=== PATIENT | male | born 1995 ===

== ENCOUNTER 2024-06-21 09:52 | Emergency (ER) | payer OTHER, SELFPAY ==
--- NOTE | 2024-06-21 | ECG_ITS ---
Test Reason : chest pain Blood Pressure : */* mmHG Vent. Rate : 109 BPM Atrial Rate : 109 BPM P-R Int : 114 ms QRS Dur : 90 ms QT Int : 364 ms P-R-T Axes : 48 37 81 degrees QTcB Int : [address] & T wave abnormality, consider anterolateral ischemia Abnormal ECG No previous ECGs available Referred By: Generic ED Physician Electronically Signed By: Nba Corey
[2024-06-21 10:08] VITALS: BP 127/80; PULSE 109; RESP 26; TEMP 36.6; O2SAT 98; BMI 31.0
[2024-06-21 11:14] LABS: MANUAL DIFF FLAG NO
[2024-06-21 11:25] LABS: Basophils Percent Auto 0.3 % (0-2); Eosinophils Absolute Auto 0.1 X10*3/uL (0.0-0.4); Eosinophils Percent Auto 0.9 % (0-4); Hematocrit 42.3 % (42.0-52.0); Hemoglobin 14.8 g/dl (14.0-18.0); Imm Gran Abs Auto 0.04 X10*3/uL (0.00-0.03); Imm Gran Pct Auto 0.4 % (0.0-0.4); Lymphocytes Absolute Auto 1.6 X10*3/uL (1.2-4.9); Lymphocytes Percent Auto 14.9 % (20-40); Mean Corpuscular Hemoglobin 28.4 pg (27.0-33.0); Mean Platelet Volume 9.2 fL (9.4-12.4); Monocytes Absolute Auto 0.7 X10*3/uL (0.1-1.2); Monocytes Percent Auto 6.1 % (2-11); Neutrophils Absolute Auto 8.4 x10*3/uL (2.0-8.3); Neutrophils Percent Auto 77.4 % (45-73); Platelet Count 318 X10*3/uL (160-400); Red Blood Count 5.22 X10*6/uL (4.60-5.80); Red Cell Distribution Width 11.5 % (11.0-16.0); White Blood Count 10.9 X10*3/uL (4.8-10.8)
[2024-06-21 11:32] LABS: Anion Gap 16 (12-20); Blood Urea Nitrogen 14 mg/dL (9-16); Calcium 9.8 mg/dL (8.4-10.2); Carbon Dioxide 19 mmol/L (22-29); Chloride 108 mmol/L (96-108); Creatinine Clr Calc Pharmacy 111.3; Estimated Glomerular Filt Rate > 60; Glucose Random 97 mg/dL (60-115); Potassium 3.8 mmol/L (3.3-5.1); Sodium 139 mmol/L (135-145)
[2024-06-21 11:41] LABS: Troponin-I High Sensitivity < 2.7 ng/L (<3.5-35.0)
--- NOTE | 2024-06-21 14:57 | ED_ITS ---
HPI - Chest Pain General Chief Complaint: Chest Pain Stated Complaint: CP, headache, sweats Related Data Allergies Allergy/AdvReac Type Severity Reaction Status Date / Time No Known Allergies Allergy Verified 06/21/24 10:17 [facility] Social History Social History Advance Directives: No Advance Directives Information Provided: No Do you have a plan to hurt others: No Plan Physical Exam 2 Vital Signs: Vital Signs: Last Vital Signs Temp 98.0 F 06/21/24 15:05 Pulse 84 06/21/24 15:05 Resp 18 06/21/24 15:05 BP 136/61 06/21/24 15:05 Pulse Ox 97 06/21/24 15:05 O2 Del Method Room Air 06/21/24 15:05 BMI result Body Mass Index 31.0 Course Course Course Narrative: RME, this is a rapid medical exam performed by Erick Holliday please refer to primary provider for complete H&P- 28-year-old male presents for evaluation of chest pain, shortness of breath. His symptoms started 1 week ago and have been intermittent. He reports that he went to [facility] and was ultimately discharged. He states the symptoms started again at work yesterday and he woke up with chest pain today with associated shortness of breath. He reports that he gets dizzy and nauseous after eating. He had an EKG that was nonischemic troponin negative. I added on LFTs given the postprandial symptoms. Medical Decision Making Lab Data 06/21/24 11:09 06/21/24 11:09 Labs: Lab Results 06/21/24 Range/Units 11:09 WBC 10.9 H (4.8-10.8) X10*3/uL RBC 5.22 (4.60-5.80) X10*6/uL Hgb 14.8 (14.0-18.0) g/dl Hct 42.3 (42.0-52.0) % MCV 81.0 (80.0-98.0) fL MCH 28.4 (27.0-33.0) pg MCHC 35.0 (31.0-36.0) g/dl RDW 11.5 (11.0-16.0) % Plt Count 318 (160-400) X10*3/uL MPV 9.2 L (9.4-12.4) fL Immature Gran % (Auto) 0.4 (0.0-0.4) % Neut % (Auto) 77.4 H (45-73) % Lymph % (Auto) 14.9 L (20-40) % [place] % (Auto) 6.1 (2-11) % Eos % (Auto) 0.9 (0-4) % Baso % (Auto) 0.3 (0-2) % Lymph # (Auto) 1.6 (1.2-4.9) X10*3/uL [place] # (Auto) 0.7 (0.1-1.2) X10*3/uL Eos # (Auto) 0.1 (0.0-0.4) X10*3/uL Baso # (Auto) 0.0 (0.0-0.2) X10*3/uL Abs Immat Gran (auto) 0.04 H (0.00-0.03) X10*3/uL Absolute Neuts (auto) 8.4 H (2.0-8.3) x10*3/uL Absolute Nucleated RBC 0.000 (0.0-0.012) X10*3/uL Nucleated RBC % (auto) 0.0 (0.0-0.2) /100WBC Sodium 139 (135-145) mmol/L Potassium 3.8 (3.3-5.1) mmol/L Chloride 108 (96-108) mmol/L Carbon Dioxide 19 L (22-29) mmol/L Anion Gap 16 (12-20) BUN 14 (9-16) mg/dL Creatinine 1.11 (0.5-1.4) mg/dL Estim Creat Clear Calc 111.3 Estimated GFR > 60 Random Glucose 97 (60-115) mg/dL Calcium 9.8 (8.4-10.2) mg/dL Total Bilirubin 0.5 (0.0-1.0) mg/dL Direct Bilirubin 0.2 (0.0-0.5) mg/dL AST 31 (5-37) U/L ALT 45 H (0-40) U/L Alkaline Phosphatase 70 (39-117) U/L Troponin I High Sens < 2.7 (<3.5-35.0) ng/L Total Protein 7.9 (6.5-8.0) g/dL Albumin 4.5 (3.5-5.0) g/dL Lipase 25 (8-78) U/L TSH 1.53 (0.32-4.0) uIU/mL Discharge Plan Discharge Clinical Impression: Chest pain Patient Disposition: Left W/O Completing Treatment Discharge Date/Time: 06/21/24 16:09
[2024-06-21 15:05] VITALS: BP 136/61; PULSE 84; RESP 18; TEMP 36.7; O2SAT 97
--- NOTE | 2024-06-21 15:06 | PC.NURSE ---
pt came to triage stating he wanted to leave, repeat vitals were performed at this time, provider spoke with the patient as well. pt stated he had eaten breakfast including a glass of milk and shortly there after began having the symptoms- this was not divulged in the initial triage. pt now stating his pain lessoned and he feels somewhat better. upon pt leaving triage security entered triage stating the parents are concerned about the patient and wish for him to be seen and have gone outside to attempt to get him to return to the ED.
[2024-06-21 15:15] LABS: Alanine Aminotransferase 45 U/L (0-40); Albumin Level 4.5 g/dL (3.5-5.0); Aspartate Amino Transferase 31 U/L (5-37); Bilirubin Direct 0.2 mg/dL (0.0-0.5); Bilirubin Total 0.5 mg/dL (0.0-1.0); Lipase 25 U/L (8-78); Total Protein 7.9 g/dL (6.5-8.0)
--- NOTE | 2024-06-21 15:30 | PC.NURSE ---
mother came into triage with charge to discuss again what was going on with son, she was still trying to convince him to stay. pt had a room ready for him if she could get him to come back inside. mother stated all the tests being performed pt has had multiple times and feels he maybe having anxiety, mother stated she is going to attempt to get him into his pcp office tomm if she cant get him into the ed.
[2024-06-21 15:35] LABS: Alkaline Phosphatase 70 U/L (39-117)
[2024-06-21 15:52] LABS: TSH reflex Free T4 1.53 uIU/mL (0.32-4.0)
--- OUTSIDE RECORDS SUMMARY | 2024-06-21 18:49 | XMS_ITS | Clinical Summary ---
Author Organization [facility] Address [address] [place] [address] Phone Care Team Providers Care Beater Out Leveling Machine Name Role Phone Unavailable Primary Care Provider Unavailabl e Immunizations Immunization Administration Dates Next Due DTP 05/08/1998,03/06/1998,1997 DTaP 5 08/16/2002,04/30/1999 H1N1 12/26/2008 HPV, Quadrivalent 02/04/2014,05/07/2013,02/03/20 13 Hep A, ped/adol 02/14/2015,02/04/2014 Hep B, ped/adol 05/08/1998,1997,1997 Hib (PRP-T) 02/05/1999, 9,03/06/1998,12/27 IPV 08/16/2002,03/06/1998,1997 Influenza Split 12/28/2012,01/08/2010 Influenza, injectable, quadrivalent 02/04/2014 Influenza, injectable, quadr ivalent, preservative free 03/05/2016 Influenza, intranasal, quadrivalent 02/14/2015 Influenza, intranasal, trivalent 01/31/2012,06/2010 MMR 08/16/2002,11/02/1998 Meningococcal Conj (Menactra) MCV4P 02/28/2015,1 03/04/2008 OPV 02/05/1999 Tdap 01/02/2009 Varicella 12/25/2007,11/02/1998 Family History Relation Name Status Comments Brother Alive Brother: Alive and well Cousin 1 Cousin: Seizure disorder, ADD/ADHD Cousin 2 Cousin: Seizure disorder, ADD/ADHD Father Alive Father: Alive a nd well Maternal Grandfather Materna l grandfather: Diabetes mellitus Maternal Grandmother Materna l aunt: Hyperlipidemia Mother Alive Mother: Alive a nd well Paternal Grandmother Paterna l grandmother: Alzheimer's disease Social History Tobacco Use Types Packs/Day Years Used Date Smoking Tobacco: Never Comments:Never smoker Sex and Gender Information Value Date Recorded Sex Assigned at Not on file Legal Sex Male 5:17 PM EDT Gender Identity Not on file Sexual Orientation Not on file Last Filed Vital Signs Vital Sign Reading Time Taken Comments Blood Pressure 106/55 03/05/2016 12:00 AM EST Pulse 54 03/05/2016 12:00 AM EST Temperature 36.6 ??C (97.9 ??F) 02/28/2015 12:[address] Respiratory Rate - - Oxygen Saturation - - Inhaled Oxygen Concentration - - Weight 64.6 kg (142 lb 6.4 oz) 03/05/2016 12:00 AM EST Height 169.5 cm (5' 6.75 ) 03/05/2016 12:[address] Body Mass Index 22.47 03/05/2016 12:00 AM EST Plan of Treatment Health Maintenance Due Date Last Done Comments DTaP,Tdap,and Td Vaccines (7 - Td or Tdap) 01/02/2019 01/02/2009, 08/16/2002, 04/30/1999, Additional history exists Influenza Vaccines (#1) 2023 03/05/19 17, 02/14/2015, 02/04/2014, Additional history exists COVID-19 Vaccine ( season) 2023 Hepatitis B Vaccines Completed 05/08/1998, 1997, 1997 HIB Vaccines Completed 02/05/1999, 04/24, 03/06/1998, Additional history exists IPV Vaccines Completed 08/16/2002, 01/24, 03/06/1998, Additional history exists MMR Vaccines Completed 08/16/2002, 11/02/1998 Varicella Vaccines Completed 12/25/2007, 11/02/1998 HPV Vaccines Completed 02/04/2014, 04/24, 02/02/2013 Hepatitis A Vaccines Completed 02/14/2015, 02/05/20 14 Meningococcal Vaccine Completed 02/28/2015, 009 Men B Vaccine Aged Out No longer elig ible based on patient's age to complete this topic Pneumococcal Vaccine Aged Out No long er eligible based on patient's age to complete this topic
--- OUTSIDE RECORDS SUMMARY | 2024-06-21 18:49 | XMS_ITS | Encounter Summary ---
Author Organization [facility] Address [address] [place] [address] Phone Care Team Providers Care Supervisor Estimator And Drafter Name Role Phone Lg Gaxiola MD Primary Care Provider [phone] Encounter Details Date Type Department Care Team (Late st Contact Info) Description 05/08/2016 Documentation [facility] [place] [address] [place] [address] Family Medicine, Physician [address] [place], [place] [id number] Social History Tobacco Use Types Packs/Day Years Used Date Smoking Tobacco: Never Comments:Never smoker Sex and Gender Information Value Date Recorded Sex Assigned at Not on file Legal Sex Male 5:17 PM EDT Gender Identity Not on file Sexual Orientation Not on file documented as of this encounter Plan of Treatment Not on file documented as of this encounter Visit Diagnoses Not on filedocumented in this encounter Care Teams Supervisor Estimator And Drafter Relationship Specialty Start Date End Date Lg Gaxiola MD [address] [place] [address] [place] [id number] PCP - General 10/04/16 05/28/22 documented as of this encounter
--- OUTSIDE RECORDS SUMMARY | 2024-06-21 18:49 | XMS_ITS | Encounter Summary ---
Author Organization [facility] Address [address] [place] [address] Phone Care Team Providers Care Extension Specialist Name Role Phone Lg Gaxiola MD Primary Care Provider [phone] Encounter Details Date Type Department Care Team (Late st Contact Info) Description 10/10/2016 Conversion Encounter [facility] - [address] [address] Social History Tobacco Use Types Packs/Day Years [...] on filedocumented in this encounter Care Teams Extension Specialist Relationship Specialty Start Date End Date Lg Gaxiola MD [address] [place] [phone] PCP - General 10/04/16 05/28/22 documented as of this encounter
--- OUTSIDE RECORDS SUMMARY | 2024-06-21 18:49 | XMS_ITS | Encounter Summary ---
Author Organization [facility] Address [address] [place] [address] Phone Care Team Providers Care Mechanism Inspector Name Role Phone Lg Gaxiola MD Primary Care Provider [phone] Encounter Details Date Type Department Care Team (Late st Contact Info) Description 10/26/2013 Documentation [facility] [place] [address] [place] [address] Family Medicine, Physician [address] [place], [place] [phone] Social History Tobacco Use Types Packs/Day Years Used Date Smoking Tobacco: Never Assessed Sex and Gender Information Value Date Recorded Sex Assigned at Not on file Legal Sex Male 5:17 PM EDT Gender Identity Not on file Sexual Orientation Not on file documented as of this encounter Plan of Treatment Not on file documented as of this encounter Visit Diagnoses Not on filedocumented in this encounter Care Teams Mechanism Inspector Relationship Specialty Start Date End Date Lg Gaxiola MD [address] [place] [id number] PCP - General 10/04/16 05/28/22 documented as of this encounter
== END 2024-06-21 16:09 | disposition left against medical advice (07) ==
PROVIDERS: Physician Assistant; Emergency Provider Emergency Medicine
DX: R07.89 Other chest pain (principal); R51.9 Headache, unspecified; Z79.899 Other long term (current) drug therapy
CPT/HCPCS: 36415; 80048; 80076; 83690; 84443; 84484; 85025; 93005; 99283

== ENCOUNTER → 2024-06-21 10:07 | Outpatient (BNV) | payer OTHER, SELFPAY | PROVIDERS: Visit Provider Internal Medicine Cardiovascular Disease | DX: R00.0 Tachycardia, unspecified (principal) | CPT/HCPCS: 93010 ==